=== PATIENT | female | born 1940 | race Caucasian/White ===

== ENCOUNTER 2022-03-27 12:52 | Outpatient (CLI) | payer MEDICARE, BC, SELFPAY | END 2022-03-27 12:53 | disposition home or self-care (01) | LOC: WOUND 12:57 | PROVIDERS: Visit Provider Surgery | DX: S89.82XA Other specified injuries of left lower leg, initial encounter (principal) | CPT/HCPCS: 11042; 99213 ==

== ENCOUNTER 2022-04-03 13:54 | Outpatient (CLI) | payer MEDICARE, BC, SELFPAY | END 2022-04-03 13:55 | disposition home or self-care (01) | LOC: WOUND 13:55 | PROVIDERS: Visit Provider Surgery | DX: S81.802A Unspecified open wound, left lower leg, initial encounter (principal) | CPT/HCPCS: 97597 ==

== ENCOUNTER 2022-04-17 09:00 | Outpatient (CLI) | payer MEDICARE, BC, SELFPAY | END 2022-04-17 09:01 | disposition home or self-care (01) | LOC: WOUND 08-27 11:17 | PROVIDERS: Visit Provider Surgery | DX: I83.022 Varicose veins of left lower extremity with ulcer of calf (principal); I87.2 Venous insufficiency (chronic) (peripheral); L97.222 Non-pressure chronic ulcer of left calf with fat layer exposed | CPT/HCPCS: 11042 ==

== ENCOUNTER 2022-04-24 13:53 | Outpatient (CLI) | payer MEDICARE, BC, SELFPAY | END 2022-04-24 13:54 | disposition home or self-care (01) | LOC: WOUND 13:54 | PROVIDERS: Visit Provider Nurse Practitioner Family | DX: S81.802A Unspecified open wound, left lower leg, initial encounter (principal); I87.2 Venous insufficiency (chronic) (peripheral) | CPT/HCPCS: 11042 ==

== ENCOUNTER 2022-05-01 13:53 | Outpatient (CLI) | payer MEDICARE, BC, SELFPAY | END 2022-05-01 13:54 | disposition home or self-care (01) | LOC: WOUND 13:53 | PROVIDERS: Visit Provider Surgery | DX: S81.802A Unspecified open wound, left lower leg, initial encounter (principal); I87.2 Venous insufficiency (chronic) (peripheral) | CPT/HCPCS: 11042 ==

== ENCOUNTER 2022-05-08 13:53 | Outpatient (CLI) | payer MEDICARE, BC, SELFPAY | END 2022-05-08 13:54 | disposition home or self-care (01) | PROVIDERS: Visit Provider Surgery | DX: S81.802A Unspecified open wound, left lower leg, initial encounter (principal); I87.2 Venous insufficiency (chronic) (peripheral) | CPT/HCPCS: 11042 ==

== ENCOUNTER 2022-05-15 13:52 | Outpatient (CLI) | payer MEDICARE, BC, SELFPAY | END 2022-05-15 13:53 | disposition home or self-care (01) | LOC: WOUND 13:53 | PROVIDERS: Visit Provider Surgery | DX: S81.802A Unspecified open wound, left lower leg, initial encounter (principal); I87.2 Venous insufficiency (chronic) (peripheral) | CPT/HCPCS: 99212 ==

== ENCOUNTER 2022-12-12 19:59 | Inpatient (IN) | payer MEDICARE, BC, SELFPAY ==
[2022-12-12] VITALS (20 sets, daily range): BP systolic 123–144; BP diastolic 69–81; PULSE 107–122; RESP 24; TEMP 36.5; O2SAT 88–91
--- NOTE | 2022-12-12 20:37 | ED_ITS ---
HPI - SOB/Dyspnea General Time Seen by Provider: 20:37 Date Seen: 12/12/22 Chief Complaint: Shortness of Breath/Dyspnea Stated Complaint: Nausea Low O2 Time Seen by Provider: 12/12/22 20:32 Source: patient and RN notes reviewed Mode of arrival: ambulatory Limitations: no limitations History of Present Illness HPI Narrative: Patient is an 82-year-old female coming in with her due to concerns of decreased oxygenation tonight. He put a pulse oximeter and she was 80% at home. Since Friday or Friday she has had increased coughing. She has maybe had some low-grade temperatures of 99 at home. She does not endorse being short of breath per se but states sometimes she just feels like she can not fully take a breath. When she walked in to triage she was 79% on room air and came up to high 80s after resting. She is up to I believe 5 L nasal cannula to keep her O2 sats up to 90% when I am in with her. She and her admit that they have had respiratory stuff going through the house for maybe about 3 weeks. Patient was recently in [place] where her daughter had a cold. She does admit that she is worsening really Friday or Friday. There is maybe some nausea. She denies any chest pain. correct patient a lot during the history. She denied smoking but he states she is a moderate smoker. She denies any history of cardiac or lung problems. They note that her hands and feet have been cold. MD elicited complaint: cough Related Data Home oxygen amount: none Allergies Allergy/AdvReac Type Severity Reaction Status Date / Time Penicillins Allergy Intermediate Verified 12/12/22 22:45 Review of Systems Status of ROS: Reports: 6 or more systems reviewed and unremarkable except as noted in History and below (question patient's ability to give reliable history at this point) PFSH PFS Social History Smoking Status: Current some day smoker What tobacco products do you use: cigarettes How often do you have a drink containing alcohol: 2-3 times a week How many standard drinks containing alcohol do you have on a typical day: 1 or 2 How often do you have six or more drinks on one occasion: Never AUDIT-C Alcohol total score: 3 Non-prescribed substance use: denies use Exam Const: Vital Signs, click to edit/add: Vital Signs - 24 hr 12/12/22 20:07 12/12/22 20:38 12/12/22 20:50 Temperature 97.7 F Pulse Rate 120 H Pulse Rate [Left P ulse Oximeter] 122 H Respiratory Rate 24 24 Blood Pressure 123/81 Blood Pressure [Ri ght Upper Arm] 134/78 Pulse Oximetry 89 90 90 Oxygen Delivery Me thod Room Air Nasal Cannula Nasal Cannula Oxygen Flow Rate 5 5 12/12/22 21:00 12/12/22 21:00 12/12/22 21:01 Temperature Pulse Rate 117 H 118 H Pulse Rate [Left P ulse Oximeter] Respiratory Rate Blood Pressure 123/81 Blood Pressure [Ri ght Upper Arm] Pulse Oximetry 90 89 91 Oxygen Delivery Me thod Oxygen Flow Rate 12/12/22 21:15 12/12/22 21:30 12/12/22 21:31 Temperature Pulse Rate 115 H 112 H 113 H Pulse Rate [Left P ulse Oximeter] Respiratory Rate Blood Pressure 132/80 Blood Pressure [Ri ght Upper Arm] Pulse Oximetry 90 89 89 Oxygen Delivery Me thod Oxygen Flow Rate 12/12/22 21:32 12/12/22 21:45 12/12/22 22:00 Temperature Pulse Rate 107 H 108 H 112 H Pulse Rate [Left P ulse Oximeter] Respiratory Rate Blood Pressure Blood Pressure [Ri ght Upper Arm] Pulse Oximetry 89 91 89 Oxygen Delivery Me thod Oxygen Flow Rate 12/12/22 22:01 12/12/22 22:45 12/12/22 23:00 Temperature Pulse Rate 112 H 110 H 112 H Pulse Rate [Left P ulse Oximeter] Respiratory Rate Blood Pressure 137/69 Blood Pressure [Ri ght Upper Arm] Pulse Oximetry 90 88 90 Oxygen Delivery Me thod Oxygen Flow Rate 5 12/12/22 23:01 12/12/22 23:02 12/12/22 23:15 Temperature Pulse Rate 113 H 112 H 111 H Pulse Rate [Left P ulse Oximeter] Respiratory Rate Blood Pressure 144/78 H Blood Pressure [Ri ght Upper Arm] Pulse Oximetry 90 90 90 Oxygen Delivery Me thod Oxygen Flow Rate 12/12/22 23:30 12/12/22 23:31 12/12/22 23:45 Temperature Pulse Rate 108 H 108 H 108 H Pulse Rate [Left P ulse Oximeter] Respiratory Rate Blood Pressure 130/74 Blood Pressure [Ri ght Upper Arm] Pulse Oximetry 91 91 91 Oxygen Delivery Me thod Nasal Cannula Oxygen Flow Rate 5 Documenting provider has reviewed patient's vital signs: yes Common normals: no apparent distress, average body habitus, oriented x3 and alert General appearance: cooperative, comfortable, well kempt and well developed HENMT: Common normals: normocephalic, head/scalp atraumatic, hearing grossly normal bilaterally, external ears normal, external nose normal, nasal mucous membranes and turbinates normal, moist oral mucous membranes, oropharynx normal and dentition normal Head and scalp: normocephalic and atraumatic Nose: external nose normal and nasal mucous membranes and turbinates normal E xternal ear: external ears normal Eye: Common normals: PERRL, EOMs intact bilaterally, conjunctivae normal and no scleral icterus Conjunctiva: conjunctiva(e) normal Pupil: PERRL Neck & C-Spine: Common normals: full ROM, no lymphadenopathy, supple and no meningeal signs Chest: Common normals: inspection of chest normal and palpation of chest normal Resp: Common normals: normal respiratory effort, no retractions, no use of accessory muscles and clear to auscultation bilaterally (But with somewhat distant breath sounds) Auscultation: clear to auscultation bilaterally (But with somewhat distant breath sounds) Cardio: Common normals: regular rhythm, S1 normal heart sound, S2 normal heart sound, no gallops, no clicks and no murmurs Rate: tachycardic Rhythm: regular rhythm Heart sounds: S1 normal and S2 normal GI: Common normals: Normal to inspection, nondistended, normoactive bowel sounds present, soft to palpation, non-tender, no hepatosplenomegaly and no masses Palpation: soft and no hepatosplenomegaly Extremity: Common normals: normal to inspection, no calf tenderness and no pedal edema Neuro: Common normals: oriented x3 Sensorium/orientation: alert Meningeal signs: no meningeal signs Psych: Appearance: well kempt Course Course Hospital Course: Patient is hypoxic but not significantly short of breath. This seems very reminiscent of COVID. She is on 5 L nasal cannula in just into the 90s. We will do the triple viral swab, portable chest x-ray. I will get a full complement of labs on her including D-dimer. My initial presumption is this is possibly COVID but could be other respiratory infections as well. We certainly will be considering thromboembolic disease in this picture, will look at cardiac parameters 2. Reevaluation(s) Reevaluation #1: Reviewed with patient that there is significant pneumonia seen on her chest x- ray. We are going to send her for chest CT PE protocol to further evaluate this. Her white count is quite suppressed but her COVID is coming back negative at this time. Time: 22:02 Consultations Consultation #1: Did briefly review this case with Dr. Puga. He will be finishing up his shift an asked that I speak with the overnight call coverage group. We did discuss her pneumonia. Legionella was something we did discuss, he did order the Legionella antibody. Reviewed with him that I had went on and reviewed in up-to-date for hospitalize community-acquired pneumonia. I am going to initiate coverage with Rocephin and azithromycin. Her white count is suppressed in her presentation certainly reminds me of a COVID like illness. She is maintaining on 5 L oxygen. She is a definite smoker and did have diminished breath sounds but no wheezing. We did discuss use of a dose of oral prednisone and I did order [address] is not showing any evidence of pulmonary embolus. 1155pm accepted by [facility]. Time: 23:28 Vital Signs Vital signs: Initial Vital Signs Temperature 97.7 F 12/12/22 20:07 Temperature Source Temporal Artery Scan 12/12/22 20:07 Pulse Rate 122 H 12/12/22 20:07 Pulse Rhythm Regular 12/12/22 20:07 Respiratory Rate 24 12/12/22 20:07 Blood Pressure 134/78 12/12/22 20:07 Blood Pressure Mean 96 12/12/22 20:07 Pulse Oximetry 89 12/12/22 20:07 Oxygen Delivery Method Room Air 12/12/22 20:07 Vital Signs Temperature 97.7 F 12/12/22 20:07 Pulse Rate 122 H 12/12/22 20:07 Respiratory Rate 24 12/12/22 20:07 Blood Pressure 134/78 12/12/22 20:07 Pulse Oximetry 89 12/12/22 20:07 Oxygen Delivery Method Room Air 12/12/22 20:07 Temperature 97.7 F 12/12/22 20:07 Pulse Rate 108 H 12/12/22 23:45 Respiratory Rate 24 12/12/22 20:50 Blood Pressure 130/74 12/12/22 23:31 Pulse Oximetry 91 12/12/22 23:45 Oxygen Delivery Method Nasal Cannula 12/12/22 23:31 Oxygen Flow Rate 5 12/12/22 23:31 MDM - SOB/Dyspnea Lab Data Attestation: I reviewed the patient's lab results. Labs: Lab Results 12/12/22 Range/Units 20:47 WBC 2.87 L (4.50-11.00) K/uL RBC 4.41 (4.00-5.20) m/uL Hgb 13.5 (12.0-16.0) gm/dL Hct 38.8 (33.0-51.0) % MCV 88 (80-100) fL MCH 31 (26-34) pg MCHC 35 (32-36) gm/dL RDW Coeff of Yuli 12.4 (11.5-15.5) % Plt Count 162 (140-440) K/uL Neut % (Auto) 92.0 H (42.0-72.0) % Lymph % (Auto) 4.2 L (20-44) % Stafford % (Auto) 3.5 (0.0-11.0) % Eos % (Auto) 0.0 (0.0-7.0) % Baso % (Auto) 0.3 (0.0-3.0) % Neut # (Auto) 2.60 (1.7-7.0) K/uL Lymph # (Auto) 0.10 L (0.90-2.90) K/uL Stafford # (Auto) 0.10 (0.00-0.90) K/UL Eos # (Auto) 0.00 (0.00-0.50) K/uL Baso # (Auto) 0.00 (0.00-0.30) K/uL Diff Slide Review Acceptable Review (Acceptable) D-Dimer Quant (PE/DVT) 2.64 H (0.00-0.50) ug/ml VBG pH 7.421 (7.32-7.43) VBG pCO2 34 L (40-50) mmHG VBG pO2 49.1 H (25-47) mmHG VBG HCO3 22 (21-28) mmol/L Sodium 120 L* (135-149) mmol/L Potassium 4.2 (3.6-5.1) mmol/L Chloride 89 L (96-114) mmol/L Carbon Dioxide 20 (20-32) mmol/L BUN 21 (7-30) mg/dL Creatinine 0.7 (0.5-1.5) mg/dL Estimated GFR 86 ml/min Glucose 95 (60-115) mg/dL Lactate 1.7 (0.5-1.9) mmol/L Calcium 9.2 (8.4-10.6) mg/dL Total Bilirubin 1.0 (0.1-1.5) mg/dL AST 49 H (12-35) U/L ALT 33 (4-35) U/L Alkaline Phosphatase 118 (40-150) U/L Troponin I 0.01 (0.01-0.04) ng/mL C-Reactive Protein 39.4 H (0.5-1.0) mg/dL NT-Pro-B Natriuret Pep 1690 pg/mL Total Protein 6.7 (6.0-8.3) g/dL Albumin 3.5 (3.3-5.0) g/dL SARS-CoV-2 (PCR) Negative SARS-CoV-2 (Negative) Influenza Type A (PCR) Negative PCR FLU A (Negative) Influenza Type B (PCR) Negative PCR FLU B (Negative) RSV (PCR) Negative PCR RSV (Negative) Imaging Data Chest x-ray: Attestation: I have reviewed the pertinent imaging results. My impression: Significant consolidated pneumonia on the left certainly seen, await Radiology over-read. Radiologist's impression: Patient: RIMA DANIELLE Facility:?[facility] Patient ID:?[id number] Site Patient ID:?[id number] Site :?[id number] Study:?XRay Chest Portable v-12/12/2022 8:56:34 PM Ordering Physician:Jovanan Girard Final Report: INDICATION: Cough, hypoxia TECHNIQUE: Chest radiograph 1 view COMPARISON: None FINDINGS: Mediastinum: The mediastinum is normal in appearance. The heart silhouette is normal in size and morphology. Lung: Consolidation of most of the left hemithorax is present with mild ground- glass infiltrate seen in the right lower lung zone. No sign of pleural effusion seen. No pneumothorax is identified. Bone and Soft tissue: Unremarkable for age. IMPRESSION: 1. Consolidation of most of the left hemithorax is present with mild ground- glass infiltrate seen in the right lower lung zone. Findings may be due to pneumonia. Dictated by Valeriy Hinton MD @ 12/12/2022 9:19:17 PM Dictated by: Valeriy Hinton MD @ 12/12/2022 21:19:21 (Electronic Signature) CT scan - chest: Attestation: I have reviewed the pertinent imaging results. My impression: Can clearly see the bilateral pneumonia on chest CT, wait radiology over read. Radiologist's impression: Patient: RIMA DANIELLE Facility:?[facility] Patient ID:?[id number] Site Patient ID:?[id number]. Site :?[id number] Study:?CT Chest Angio w/ 95cc [id number]/4/2023 10:47:02 PM Ordering Physician:Jovanna Girard Final Report: INDICATION: Hypoxia, bilateral pneumonia. TECHNIQUE: CT chest PE was acquired with 95 cc Isovue 370 IV contrast. Permanently recorded images are archived. COMPARISON: Chest radiograph from the same day. FINDINGS: Heart and vasculature: Contrast opacification of the pulmonary arterial tree is adequate. No sign of pulmonary embolism. Heart size is normal. Thoracic aorta and pulmonary artery are normal in caliber.Coronary artery and thoracic aorta atherosclerotic calcification. Aortic valve calcifications. No pericardial effusion. Lungs and pleura: Large area of consolidation occupying the nearly the entire left upper lobe. Additional band of consolidation within the lateral aspect of the right middle lobe. No pleural effusion or pneumothorax. No pleural effusions, pleural thickening, or pneumothorax. Lymph nodes/mediastinum: Prominent, but not pathologically enlarged mediastinal lymph nodes, likely reactive. No axillary lymphadenopathy Chest wall: No masses. Upper abdomen: Large exophytic 7.8 cm cyst with simple fluid and peripheral calcification arising from the left kidney. Simple 6 cm exophytic cyst arising from the right kidney. Bones: Unremarkable for age. IMPRESSION: No pulmonary embolism. Areas of consolidation within the left upper lobe and right middle lobe with near complete involvement of the left upper lobe, compatible with multilobar pneumonia. No effusion. Incidentally noted large bilateral renal cysts, measuring 7.8 cm on the left and 6 cm on the right. Please note that all CT scans at this facility use dose modulation, iterative reconstruction, and/or weight-based dosing when appropriate to reduce radiation dose to as low as reasonably achievable. Dictated by Maurilio Lovell MD @ 12/12/2022 11:06:29 PM (Electronic Signature) ECG Data Attestation: I personally reviewed and interpreted this ECG as follows: (Sinus tachycardia with PVC, 118 beats per minute. Flipped T-waves V1 through V3 and in lead 3. No definitive ST segment changes.) ECG interpretation date: 12/12/22 ECG interpretation time: 21:23 Prior ECG tracings: not available for review Ischemic changes: t wave inversions Critical Care Time Critical Care Time Critical Care Time: No Discharge Plan Discharge Clinical Impression: Hypoxia, Pneumonia of both lungs, Acute hyponatremia Patient Disposition: Admitted As Inpatient Condition: Unchanged
--- NOTE | 2022-12-12 20:38 | CRLHL7_ITS ---
For Patients: As a result of the Cures Act, medical imaging exams and procedure reports are released immediately into your electronic medical record. You may view this report before your referring provider. If you have questions, please contact your health care provider. INDICATION: Cough, hypoxia TECHNIQUE: Chest radiograph 1 view COMPARISON: None FINDINGS: Mediastinum: The mediastinum is normal in appearance. The heart silhouette is normal in size and morphology. Lung: Consolidation of most of the left hemithorax is present with mild ground-glass infiltrate seen in the right lower lung zone. No sign of pleural effusion seen. No pneumothorax is identified. Bone and Soft tissue: Unremarkable for age. IMPRESSION: 1. Consolidation of most of the left hemithorax is present with mild ground-glass infiltrate seen in the right lower lung zone. Findings may be due to pneumonia. Dictated by Valeriy Hinton MD @ 12/12/2022 9:19:17 PM Dictated by: Valeriy Hinton MD @ 12/12/2022 21:19:21 (Electronically Signed)
[2022-12-12 20:52] LABS: HCO3 VBG 22 mmol/L (21-28); PCO2 VBG 34 mmHG (40-50); PO2 VBG 49.1 mmHG (25-47); pH VBG 7.421 (7.32-7.43)
[2022-12-12 20:53] LABS: Basophils Percent Auto 0.3 % (0.0-3.0); Hematocrit 38.8 % (33.0-51.0); Hemoglobin* 13.5 gm/dL (12.0-16.0); Lymphocytes Percent Auto 4.2 % (20-44); Mean Corpuscular HGB Conc 35 gm/dL (32-36); Mean Corpuscular Hemoglobin 31 pg (26-34); Mean Corpuscular Volume 88 fL (80-100); Monocytes Percent Auto 3.5 % (0.0-11.0); Platelet Count* 162 K/uL (140-440); RDW Coefficient of Variation % 12.4 % (11.5-15.5); Red Blood Count 4.41 m/uL (4.00-5.20); White Blood Count* 2.87 K/uL (4.50-11.00)
[2022-12-12 20:54] LABS: Lactate* 1.7 mmol/L (0.5-1.9)
[2022-12-12 20:58] LABS: Slide Review Reflex Yes
[2022-12-12 21:15] LABS: Albumin* 3.5 g/dL (3.3-5.0); Chloride* 89 mmol/L (96-114)
[2022-12-12 21:16] LABS: Potassium* 4.2 mmol/L (3.6-5.1)
[2022-12-12 21:18] LABS: Alanine Aminotransferase* 33 U/L (4-35); Alkaline Phosphatase* 118 U/L (40-150); Aspartate Amino Transferase* 49 U/L (12-35); Carbon Dioxide* 20 mmol/L (20-32); Creatinine* 0.7 mg/dL (0.5-1.5); Estimated Glomerular Filt Rate 86 ml/min; Total Protein* 6.7 g/dL (6.0-8.3)
[2022-12-12 21:19] LABS: Blood Urea Nitrogen* 21 mg/dL (7-30); Calcium* 9.2 mg/dL (8.4-10.6); Glucose* 95 mg/dL (60-115); Slide Review Acceptable Review (Acceptable)
[2022-12-12 21:21] LABS: Sodium* 120 mmol/L (135-149)
[2022-12-12 21:30] LABS: PCR FLU A Negative PCR FLU A (Negative); PCR FLU B Negative PCR FLU B (Negative); PCR RSV Negative PCR RSV (Negative); Troponin I* 0.01 ng/mL (0.01-0.04)
[2022-12-12 21:32] LABS: D Dimer Quantitative* 2.64 ug/ml (0.00-0.50)
[2022-12-12 21:41] LABS: NT Pro B Type NatriureticPept* 1690 pg/mL
[2022-12-12 21:49] LABS: SARS PCR* Negative SARS-CoV-2 (Negative)
[2022-12-12] MEDS: 0.9 % SODIUM CHLORIDE 500 ML 500 ML IV (21:51)
--- NOTE | 2022-12-12 21:54 | CRLHL7_ITS ---
For Patients: As a result of the Century Cures Act, medical imaging exams and procedure reports are released immediately into your electronic medical record. You may view this report before your referring provider. If you have questions, please contact your health care provider. INDICATION: Hypoxia, bilateral pneumonia. TECHNIQUE: CT chest PE was acquired with 95 cc Isovue 370 IV contrast. Permanently recorded images are archived. COMPARISON: Chest radiograph from the same day. FINDINGS: Heart and vasculature: Contrast opacification of the pulmonary arterial tree is adequate. No sign of pulmonary embolism. Heart size is normal. Thoracic aorta and pulmonary artery are normal in caliber.Coronary artery and thoracic aorta atherosclerotic calcification. Aortic valve calcifications. No pericardial effusion. Lungs and pleura: Large area of consolidation occupying the nearly the entire left upper lobe. Additional band of consolidation within the lateral aspect of the right middle lobe. No pleural effusion or pneumothorax. No pleural effusions, pleural thickening, or pneumothorax. Lymph nodes/mediastinum: Prominent, but not pathologically enlarged mediastinal lymph nodes, likely reactive. No axillary lymphadenopathy Chest wall: No masses. Upper abdomen: Large exophytic 7.8 cm cyst with simple fluid and peripheral calcification arising from the left kidney. Simple 6 cm exophytic cyst arising from the right kidney. Bones: Unremarkable for age. IMPRESSION: No pulmonary embolism. Areas of consolidation within the left upper lobe and right middle lobe with near complete involvement of the left upper lobe, compatible with multilobar pneumonia. No effusion. Incidentally noted large bilateral renal cysts, measuring 7.8 cm on the left and 6 cm on the right. Please note that all CT scans at this facility use dose modulation, iterative reconstruction, and/or weight-based dosing when appropriate to reduce radiation dose to as low as reasonably achievable. Dictated by Maurilio Lovell MD @ 12/12/2022 11:06:29 PM (Electronically Signed)
[2022-12-12] MEDS: cefTRIAXone 2 GM in 0.9 % SODIUM CHLORIDE Mini-bag 100 ML IVPB (23:34)
[2022-12-12] MEDS: predniSONE 10 MG TABLET 40 MG PO (23:35)
[2022-12-12] MEDS: AZITHROMYCIN 250 MG TABLET 500 MG PO (23:35)
--- NOTE | 2022-12-12 23:55 | ED.NURSE ---
Report to casing blower. Patient to room 256.
[2022-12-12 23:59] LABS: C Reactive Protein* 39.4 mg/dL (0.5-1.0)
[2022-12-13] VITALS (9 sets, daily range): BP systolic 122–162; BP diastolic 59–88; PULSE 80–113; RESP 16–22; TEMP 36.7–37.4; O2SAT 92–95
--- NOTE | 2022-12-13 02:06 | P.IMPN_ITS ---
Progress Note: A&P Assessment and plan (1) Acute respiratory failure with hypoxia: Status: Acute (2) Pneumonia of both lungs: Status: Acute (3) Acute hyponatremia: Status: Acute Plan Conrado Ascencio Hospitalist collaboration: I have discussed in detail with ED Provider Dr. Briggs. 82-year-old female who was brought into the ED by her due to ongoing cough and hypoxia with O2 sat 88% at home. She is not on oxygen or CPAP at home. When she arrived to ED triage she was 77-79% on room air. In general she and her and her daughter have been sick with upper respiratory symptoms for 2 to 3 weeks. When she was feeling worse with ongoing/increasing cough which is mostly been nonproductive cough. Coughing makes her short of breath. But she also just feels like it is hard to catch her breath at times. No chills. Maybe a mild fever. Denied any chest pain. No nausea, vomiting, abdominal pain, dysuria, hematuria, melena, hematochezia, diarrhea. Maybe at 1 point she had a little nausea but none now. She had recently visited her daughter in [facility] and her daughter had been sick as well. Patient states she took a COVID test last week that was negative. She denies lower extremity or ankle edema. She feels like she was worsening since Friday and Friday and today much worse thus was brought into the ED by her . She is a smoker she states she smokes a few days a week and approximately 5 cigarettes/week. Denied any heart or lung history and the only other symptom she had was cold hands and feet. Laboratory/imaging in the ED: WBC 2.87, hemoglobin 13.5, hematocrit 38.8, MCV 88, platelets 162. D-dimer was elevated at 2.64. VBG pH 7.421, PCO2 34, PO2 49.1, bicarb 22. Sodium 120 and do not have prior sodium to compare to, potassium 4.2, chloride 89, CO2 20, BUN 21, creatinine 0.7, glucose 95, calcium 9.2, lactic acid 1.7, total bilirubin 1, AST 49, ALT 33, alk phosphatase 118, total protein 6.7, albumin 3.5. Troponin I less than 0.01. N pro BNP 1690 and do not have a prior level to compare to. CRP 39.4. COVID-19, influenza A, influenza B, RSV negative. Legionella pending. Chest x-ray reviewed consolidation in the left lung and mild groundglass infiltrate in the right lung and may also be due to pneumonia. CTA chest: No PE, consolidation within the left upper lobe and right middle lobe compatible with multilobar pneumonia, incidental large bilateral renal cyst 7.8 cm on the left and 6 cm on the right. EKG sinus tachycardia, heart rate 118 and flipped T waves V1 through V3 but no ST elevation and do not have a prior EKG to compare to, no chest pain. Patient was given in the ED Rocephin, azithromycin, prednisone. She is requiring 5 to 6 L nasal cannula of O2. PMH/PSH: Tobacco dependence, occasional alcohol use 1-2 drinks approximately 2-3 times a week. History of left lower leg wound and varicose veins. Allergies: Penicillins, currently tolerating cephalosporins. Telemedicine exam: Vitals reviewed No apparent distress, she is awake and alert and oriented x3 She is able to talk to me in complete sentences, speech is clear Follows commands, no lateralizing weakness Pupils equal, no scleral icterus Lips and mouth are mildly dry, tongue midline on protrusion Neck no swelling, trachea midline Heart tachycardic, 2/6 systolic murmur Lungs left upper crackles and at times left lower lobe crackles, right middle lung crackles, no wheezes, but does have generalized diminished breath sounds overall, no respiratory distress Abdomen bowel sounds are positive, soft, nondistended, nontender for nursing palpation Lower extremities no pitting edema bilateral and nursing confirmed with palpation Skin dry, mildly dry Assessment and plan: Acute hypoxic respiratory failure Multilobar pneumonia Hyponatremia, acute: Plan: Patient is requiring 5 to 6 L nasal cannula O2 and satting 92%, she does not have any respiratory distress though, she is able to talk to me in complete sentences. She is tachycardic with sinus tachycardia but no evidence of hypotension. Lactic acid was not elevated at 1.7. She had leukopenia of 2.87 which could be infection related as well. She is afebrile. RSV, COVID, influenza A and B are negative. Legionella is pending. Added strep urine antigen. Continue Rocephin and azithromycin for community-acquired pneumonia that were initiated in the ED. No current wheezing on exam but does have diminished breath sounds and steroids were initiated in the ED and will continue steroid burst which would also use in regards to community-acquired pneumonia, but also she is a smoker at baseline approximately 5 cigarettes/week risk for exacerbation from smoking. She denies need for nicotine patch. Wean O2 as able. Duo nebs as needed. Tylenol. As needed Tessueon Bethanie. Would also recommend repeat imaging in follow-up to confirm pneumonia clearing. Will keep on telemetry for the tachycardia likely related to underlying pneumonia. She does have a murmur on heart exam could consider an echo at some point. Her and N pro bnp was 1690 but no signs of volume overload on on exam. She was also hyponatremic but mental status awake and alert and oriented x3 and following commands. She had some nausea at 1 point, none currently and no vomiting. Sodium was 120 and do not have a prior sodium level to compare to, will repeat sodium since she was receiving IV fluids in the ED and make sure we are not over correcting and based on repeat level will determine need for further fluids or other treatment such as fluid restriction. Plan serum osmolality, urine sodium, urine osmolality. I do not have any current home medications and will need to verify this as well in the a.m. Keep her on telemetry as mentioned for the tachycardia and could consider an echo with a heart murmur heard and troponin was not elevated and she has not had any chest pain, EKG had some inverted T waves in the anterior leads but again no chest pain and no elevated troponin, monitor. Will also need to confirm no home meds with further review in am. Diet: Regular DVT prophylaxis: Ambulatory, SCDs, consider pharmacologic prophylaxis dose of Lovenox in the a.m. CODE STATUS: Full code Please call E hospitalist with questions Subjective Date Seen: 12/13/22 Exam Const: Vital Signs, click to edit/add: Vital Signs - 24 hr 12/12/22 20:07 12/12/22 20:38 12/12/22 20:50 Temperature 97.7 F Pulse Rate 120 H Pulse Rate [Left P ulse Oximeter] 122 H Respiratory Rate 24 24 Blood Pressure 123/81 Blood Pressure [Le ft Arm] Blood Pressure [Ri ght Upper Arm] 134/78 Pulse Oximetry 89 90 90 Oxygen Delivery Me thod Room Air Nasal Cannula Nasal Cannula Oxygen Flow Rate 5 5 Fraction of Inspir ed Oxygen 12/12/22 21:00 12/12/22 21:00 12/12/22 21:01 Temperature Pulse Rate 117 H 118 H Pulse Rate [Left P ulse Oximeter] Respiratory Rate Blood Pressure 123/81 Blood Pressure [Le ft Arm] Blood Pressure [Ri ght Upper Arm] Pulse Oximetry 90 89 91 Oxygen Delivery Me thod Oxygen Flow Rate Fraction of Inspir ed Oxygen 12/12/22 21:15 12/12/22 21:30 12/12/22 21:31 Temperature Pulse Rate 115 H 112 H 113 H Pulse Rate [Left P ulse Oximeter] Respiratory Rate Blood Pressure 132/80 Blood Pressure [Le ft Arm] Blood Pressure [Ri ght Upper Arm] Pulse Oximetry 90 89 89 Oxygen Delivery Me thod Oxygen Flow Rate Fraction of Inspir ed Oxygen 12/12/22 21:32 12/12/22 21:45 12/12/22 22:00 Temperature Pulse Rate 107 H 108 H 112 H Pulse Rate [Left P ulse Oximeter] Respiratory Rate Blood Pressure Blood Pressure [Le ft Arm] Blood Pressure [Ri ght Upper Arm] Pulse Oximetry 89 91 89 Oxygen Delivery Me thod Oxygen Flow Rate Fraction of Inspir ed Oxygen 12/12/22 22:01 12/12/22 22:45 12/12/22 23:00 Temperature Pulse Rate 112 H 110 H 112 H Pulse Rate [Left P ulse Oximeter] Respiratory Rate Blood Pressure 137/69 Blood Pressure [Le ft Arm] Blood Pressure [Ri ght Upper Arm] Pulse Oximetry 90 88 90 Oxygen Delivery Me thod Oxygen Flow Rate 5 Fraction of Inspir ed Oxygen 12/12/22 23:01 12/12/22 23:02 12/12/22 23:15 Temperature Pulse Rate 113 H 112 H 111 H Pulse Rate [Left P ulse Oximeter] Respiratory Rate Blood Pressure 144/78 H Blood Pressure [Le ft Arm] Blood Pressure [Ri ght Upper Arm] Pulse Oximetry 90 90 90 Oxygen Delivery Me thod Oxygen Flow Rate Fraction of Inspir ed Oxygen 12/12/22 23:30 12/12/22 23:31 12/12/22 23:45 Temperature Pulse Rate 108 H 108 H 108 H Pulse Rate [Left P ulse Oximeter] Respiratory Rate Blood Pressure 130/74 Blood Pressure [Le ft Arm] Blood Pressure [Ri ght Upper Arm] Pulse Oximetry 91 91 91 Oxygen Delivery Me thod Nasal Cannula Oxygen Flow Rate 5 Fraction of Inspir ed Oxygen 12/13/22 00:30 12/13/22 00:30 12/13/22 01:00 Temperature 99.3 F 99.3 F Pulse Rate Pulse Rate [Left P ulse Oximeter] 113 H 113 H Respiratory Rate 20 22 Blood Pressure Blood Pressure [Le ft Arm] 141/80 H 141/80 H Blood Pressure [Ri ght Upper Arm] Pulse Oximetry 92 92 93 Oxygen Delivery Me thod Nasal Cannula Nasal Cannula Nasal Cannula Oxygen Flow Rate 6 5 Fraction of Inspir ed Oxygen 5 Labs Labs: Laboratory Results - last 24 hr 12/12/22 20:47 WBC 2.87 L RBC 4.41 Hgb 13.5 Hct 38.8 MCV 88 MCH 31 MCHC 35 RDW Coeff of Yuli 12.4 Plt Count 162 Neut % (Auto) 92.0 H Lymph % (Auto) 4.2 L [place] % (Auto) 3.5 Eos % (Auto) 0.0 Baso % (Auto) 0.3 Neut # (Auto) 2.60 Lymph # (Auto) 0.10 L [place] # (Auto) 0.10 Eos # (Auto) 0.00 Baso # (Auto) 0.00 Diff Slide Review Acceptable Review D-Dimer Quant (PE/DVT) 2.64 H VBG pH 7.421 VBG pCO2 34 L VBG pO2 49.1 H VBG HCO3 22 Sodium 120 L* Potassium 4.2 Chloride 89 L Carbon Dioxide 20 BUN 21 Creatinine 0.7 Estimated GFR 86 Glucose 95 Lactate 1.7 Calcium 9.2 Total Bilirubin 1.0 AST 49 H ALT 33 Alkaline Phosphatase 118 Troponin I 0.01 C-Reactive Protein 39.4 H NT-Pro-B Natriuret Pep 1690 Total Protein 6.7 Albumin 3.5 SARS-CoV-2 (PCR) Negative SARS-CoV-2 Influenza Type A (PCR) Negative PCR FLU A Influenza Type B (PCR) Negative PCR FLU B RSV (PCR) Negative PCR RSV
[2022-12-13 02:44] LABS: Sodium* 120 mmol/L (135-149)
--- NOTE | 2022-12-13 03:09 | PC.NURSE ---
nursing called [place] and reported sodium level of 120 to saul. banner states provider will be notified and will return call.
[2022-12-13] MEDS: 0.9 % SODIUM CHLORIDE 1000 ml 1,000 ML 75 ML IV (03:27)
[2022-12-13 07:24] LABS: Basophils Absolute Auto 0.01 K/uL (0.00-0.30); Basophils Percent Auto 0.2 % (0.0-3.0); Eosinophils Absolute Auto 0.03 K/uL (0.00-0.50); Eosinophils Percent Auto 0.6 % (0.0-7.0); Hematocrit 35.5 % (33.0-51.0); Hemoglobin* 12.5 gm/dL (12.0-16.0); Immature Granulocytes Abs Auto 0.02 K/uL (0.00-0.30); Immature Granulocytes Pct Auto 0.4 %; Lymphocytes Percent Auto 2.6 % (20-44); Mean Corpuscular HGB Conc 35 gm/dL (32-36); Mean Corpuscular Hemoglobin 31 pg (26-34); Mean Corpuscular Volume 88 fL (80-100); Monocytes Percent Auto 3.6 % (0.0-11.0); Neutrophils Percent Auto 92.6 % (42.0-72.0); Platelet Count* 167 K/uL (140-440); RDW Coefficient of Variation % 12.7 % (11.5-15.5); Red Blood Count 4.05 m/uL (4.00-5.20); White Blood Count* 5.33 K/uL (4.50-11.00)
[2022-12-13 07:48] LABS: Chloride* 91 mmol/L (96-114); Potassium* 4.1 mmol/L (3.6-5.1)
[2022-12-13 07:50] LABS: Creatinine* 0.7 mg/dL (0.5-1.5); Estimated Glomerular Filt Rate 86 ml/min
[2022-12-13 07:51] LABS: Alanine Aminotransferase* 34 U/L (4-35); Alkaline Phosphatase* 99 U/L (40-150); Aspartate Amino Transferase* 51 U/L (12-35); Bilirubin Total* 0.5 mg/dL (0.1-1.5); Blood Urea Nitrogen* 16 mg/dL (7-30); Carbon Dioxide* 20 mmol/L (20-32); Glucose* 80 mg/dL (60-115); Total Protein* 5.9 g/dL (6.0-8.3)
[2022-12-13 07:52] LABS: Calcium* 8.7 mg/dL (8.4-10.6)
--- NOTE | 2022-12-13 08:04 | PM.IMHP1 ---
Hospitalist- H&P: HPI History of Present Illness Date Seen: 12/13/22 Chief complaint: Nausea Low O2 Narrative: Melinda Jackson is a 82 year old female who presented to the emergency room yesterday for an approximate 4-5 day history of nausea and intermittent cough. She has not been eating well 2/2 illness, but is pushing fluids. She has had exposure to URI symptoms, and yesterday her checked her oxygen saturation at home and found to be in the low 80% range. ER course and findings: - sodium of 120 (baseline 135 as an outpatient) - CRP 30 9:00 a.m., elevated D-dimer, white blood count 2.8 with PMN predominance - CT scan revealed a multifocal pneumonia affecting the left upper lobe and right middle lobe - Rocephin and azithromycin initiated in the emergency room She was admitted overnight by the E-hospitalist service. This morning, patient is feeling better. She is still requiring supplemental oxygen. Medical history updated below, PCP is Dr. Elizondo locally. Review of Systems Narrative: - patient denies any weight changes or fevers - she has not had any chest pain or dyspnea - she is unsure if she has been confused lately, but notes a very significant change in baseline regarding her mentation. This was 1st noted 4 days ago [facility] Medical History (Updated 12/13/22 @ 14:54 by Aga Cota MD) Cataract ?H26.9 - Unspecified cataract (ICD-10) Skin cancer ?C44.90 - Unspecified malignant neoplasm of skin, unspecified (ICD-10) Skin cancer ?C44.90 - Unspecified malignant neoplasm of skin, unspecified (ICD-10) Hypertension ?I10 - Essential (primary) hypertension (ICD-10) Surgical History (Updated 12/13/22 @ 12:36 by Aga Cota MD) History of appendectomy ?Z90.49 - Acquired absence of other specified parts of digestive tract (ICD-10) H/O oophorectomy H/O hernia repair ?Z98.890 - Other specified postprocedural states (ICD-10) ?Z87.19 - Personal history of other diseases of the digestive system (ICD-10) Family History (Updated 12/13/22 @ 01:39 by Tunde Peace RN) Other High blood pressure Social History (Updated 12/13/22 @ 12:34 by Aga Cota MD) Narrative: Lives with René (would be medical decision maker if needed). 3 adult children. Approximately 20 pack year history of smoking. 1-2 glasses of wine per night most nights of the week. Denies h/o withdrawal. Highest level of school completed/degree received: some college, no degree Smoking Status: Current some day smoker What tobacco products do you use: cigarettes Do you use any of these nicotine containing products: None How often do you have a drink containing alcohol: 2-3 times a week Alcohol type: wine How many standard drinks containing alcohol do you have on a typical day: 1 or 2 How often do you have six or more drinks on one occasion: Never AUDIT-C Alcohol total score: 3 Non-prescribed substance use: denies use Caffeine: Yes (3 cups of coffee/day) service: No Meds Home Medications and Allergies Home Medications Medication Instructions Recorded Confirmed Type lisinopril 10 mg tablet 10 mg PO DAILY 12/13/22 12/13/22 History Allergies Allergy/AdvReac Type Severity Reaction Status Date / Time Penicillins Allergy Intermediate Verified 12/12/22 22:45 Exam Narrative: Exam Narrative: GEN: Alert and nontoxic in appearance, wearing supplemental oxygen HEENT: Normal external ears, EOMIs bilaterally, no scleral icterus CV: RRR, systolic murmur heard best at left sternal border R: No concerning wheezing, rhonchi throughout bilateral lung abraham L>R Ext: wwp, no concerning edema Skin: No concerning skin lesions or rashes on exposed skin Neuro: No focal deficits Psych: Not agitated, does appear to have some mild confusion Const: Vital Signs, click to edit/add: Vital Signs - 24 hr 12/12/22 20:07 12/12/22 20:38 12/12/22 20:50 Temperature 97.7 F Pulse Rate 120 H Pulse Rate [Left P ulse Oximeter] 122 H Respiratory Rate 24 24 Blood Pressure 123/81 Blood Pressure [Le ft Arm] Blood Pressure [Ri ght Upper Arm] 134/78 Pulse Oximetry 89 90 90 Oxygen Delivery Me thod Room Air Nasal Cannula Nasal Cannula Oxygen Flow Rate 5 5 Fraction of Inspir ed Oxygen 12/12/22 21:00 12/12/22 21:00 12/12/22 21:01 Temperature Pulse Rate 117 H 118 H Pulse Rate [Left P ulse Oximeter] Respiratory Rate Blood Pressure 123/81 Blood Pressure [Le ft Arm] Blood Pressure [Ri ght Upper Arm] Pulse Oximetry 90 89 91 Oxygen Delivery Me thod Oxygen Flow Rate Fraction of Inspir ed Oxygen 12/12/22 21:15 12/12/22 21:30 12/12/22 21:31 Temperature Pulse Rate 115 H 112 H 113 H Pulse Rate [Left P ulse Oximeter] Respiratory Rate Blood Pressure 132/80 Blood Pressure [Le ft Arm] Blood Pressure [Ri ght Upper Arm] Pulse Oximetry 90 89 89 Oxygen Delivery Me thod Oxygen Flow Rate Fraction of Inspir ed Oxygen 12/12/22 21:32 12/12/22 21:45 12/12/22 22:00 Temperature Pulse Rate 107 H 108 H 112 H Pulse Rate [Left P ulse Oximeter] Respiratory Rate Blood Pressure Blood Pressure [Le ft Arm] Blood Pressure [Ri ght Upper Arm] Pulse Oximetry 89 91 89 Oxygen Delivery Me thod Oxygen Flow Rate Fraction of Inspir ed Oxygen 12/12/22 22:01 12/12/22 22:45 12/12/22 23:00 Temperature Pulse Rate 112 H 110 H 112 H Pulse Rate [Left P ulse Oximeter] Respiratory Rate Blood Pressure 137/69 Blood Pressure [Le ft Arm] Blood Pressure [Ri ght Upper Arm] Pulse Oximetry 90 88 90 Oxygen Delivery Me thod Oxygen Flow Rate 5 Fraction of Inspir ed Oxygen 12/12/22 23:01 12/12/22 23:02 12/12/22 23:15 Temperature Pulse Rate 113 H 112 H 111 H Pulse Rate [Left P ulse Oximeter] Respiratory Rate Blood Pressure 144/78 H Blood Pressure [Le ft Arm] Blood Pressure [Ri ght Upper Arm] Pulse Oximetry 90 90 90 Oxygen Delivery Me thod Oxygen Flow Rate Fraction of Inspir ed Oxygen 12/12/22 23:30 12/12/22 23:31 12/12/22 23:45 Temperature Pulse Rate 108 H 108 H 108 H Pulse Rate [Left P ulse Oximeter] Respiratory Rate Blood Pressure 130/74 Blood Pressure [Le ft Arm] Blood Pressure [Ri ght Upper Arm] Pulse Oximetry 91 91 91 Oxygen Delivery Me thod Nasal Cannula Oxygen Flow Rate 5 Fraction of Inspir ed Oxygen 12/13/22 00:30 12/13/22 00:30 12/13/22 01:00 Temperature 99.3 F 99.3 F Pulse Rate Pulse Rate [Left P ulse Oximeter] 113 H 113 H Respiratory Rate 20 22 Blood Pressure Blood Pressure [Le ft Arm] 141/80 H 141/80 H Blood Pressure [Ri ght Upper Arm] Pulse Oximetry 92 92 93 Oxygen Delivery Me thod Nasal Cannula Nasal Cannula Nasal Cannula Oxygen Flow Rate 6 5 Fraction of Inspir ed Oxygen 5 Hospitalist - H&P: Result Labs Labs: Short CBC 12/12/22 Range/Units 20:47 WBC 2.87 L (4.50-11.00) K/uL Hgb 13.5 (12.0-16.0) gm/dL Hct 38.8 (33.0-51.0) % Plt Count 162 (140-440) K/uL BMP 12/12/22 12/13/22 20:47 02:15 Sodium 120 L* 120 L* Potassium 4.2 Chloride 89 L Carbon Dioxide 20 BUN 21 Creatinine 0.7 Glucose 95 Calcium 9.2 Cardiac Enzymes 12/12/22 Range/Units 20:47 Troponin I 0.01 (0.01-0.04) ng/mL Liver Function 12/12/22 Range/Units 20:47 Total Bilirubin 1.0 (0.1-1.5) mg/dL AST 49 H (12-35) U/L ALT 33 (4-35) U/L Alkaline Phosphatase 118 (40-150) U/L Albumin 3.5 (3.3-5.0) g/dL Assessment and Plan Assessment and plan (1) Acute respiratory failure with hypoxia: Problem comment: - 2/2 PNA Status: Acute (2) Pneumonia of both lungs: Problem comment: - Given severity of disease, will add vancomycin to regimen 12/13 - blood cultures obtained 12/13 (has received Azithromycin and Rocephin prior) - respiratory therapy following - continue supplemental oxygen as needed Status: Acute (3) Acute hyponatremia: Problem comment: - likely secondary to acute illness with decreased p.o. intake but persistent fluid intake - also concerning for possible underlying malignancy - No history of hyponatremia per chart review - close monitoring, low-dose hypertonic saline, fluid restriction Status: Acute (4) Confusion: Problem comment: - noted by on 12/09 - likely combination of acute illness and hyponatremia, also consider atypical alcohol withdrawal as patient states she drinks 1-2 glasses of wine most nights of the week (had not been drinking over the past few days secondary to illness) - continue to follow Status: Acute (5) Hypertension: Problem comment: - blood pressure on the lower side, holding home lisinopril dose Status: Acute Plan - continue antibiotics per above - close monitoring of electrolytes - taper supplemental oxygen as tolerated - Lovenox for prophylaxis - updated at bedside, questions answered
[2022-12-13 08:08] LABS: Sodium* 121 mmol/L (135-149)
[2022-12-13 08:23] LABS: Slide Review Reflex Yes
[2022-12-13 08:24] LABS: Slide Review Acceptable Review (Acceptable)
[2022-12-13] MEDS: predniSONE 20 MG TABLET 40 MG PO (08:57)
[2022-12-13] MEDS: cefTRIAXone 2 GM in 0.9 % SODIUM CHLORIDE Mini-bag 100 ML IVPB (10:36)
[2022-12-13] MEDS: AZITHROMYCIN 250 MG TABLET PO (10:36)
[2022-12-13] MEDS: SODIUM CHLORIDE 1 GM TABLET PO ×2 (12:43→17:39)
[2022-12-13 13:57] LABS: Sodium* 123 mmol/L (135-149)
--- NOTE | 2022-12-13 18:32 | PC.NURSE ---
End of shift note, care provided from [id number]: Pt alert to self only, confused on location, date, time and location. Pt very pleasant and appreciative but not easily re-directable as pt unable to retain information. Pt's vitals stable, continues on 2L via NC to maintain 90% O2, pt at times removes and needs replacing, con't pulse ox in place, afebrile. Pt had shower around 1530 with ILEANA. Pt continent this shift, but missed hat x2, hat placement adjusted. Pt continues on 3% sodium chloride at 30ml/hr into L wrist IV, (pt is not fidgeting with lines or cords at this time), Na to be rechecked 0 then sodium chloride IVF to be addressed by MD based on result. Pt con't on fluid restriction of 1800ml/hr. Pt rested for a short nap in evening prior to dinner, sleeping soundly but arousable. Pt eating dinner in chair, chair alarm on. Pt impulsive and confused, chair and bed alarm on at all times. Call light within reach.
[2022-12-13] MEDS: ENOXAPARIN 40 MG/0.4 ML INJ SUBCUT (20:00)
[2022-12-13 20:20] LABS: Sodium* 125 mmol/L (135-149)
[2022-12-14] VITALS (8 sets, daily range): BP systolic 120–156; BP diastolic 72–91; PULSE 72–109; RESP 18–24; TEMP 36.6–37.3; O2SAT 89–95
[2022-12-14 00:54] LABS: Sodium* 125 mmol/L (135-149)
--- NOTE | 2022-12-14 01:01 | W.PM.CROSSCO ---
Subjective Subjective Interval history: sodium improving to 125 decreasing 3% saline to 15 cc per hour +35cc NS per hour=50 ml/hr recheck sodium midnight updated RN with plan to update overnight MD on midnight sodium levels and further fluid adjustments as needed goal correction 4-6 meq over 24 hours
[2022-12-14 04:36] LABS: Sodium* 127 mmol/L (135-149)
--- NOTE | 2022-12-14 04:48 | PC.NURSE ---
Pt confused to situation. Pleasant and cooperative. Needs hep with pole while ambulating SBA. Reporting zero pain.
--- NOTE | 2022-12-14 05:27 | P.IMPN_ITS ---
Progress Note: A&P Assessment and plan (1) Acute hyponatremia: Problem details: Status: Acute Plan Conrado Ascencio hospitalist collaboration: Nursing noted repeat Na is 127 and earlier today was 123 and had been on 3% sali ne and NS and reviewed prior cross cover note. On admit Sodium was 120. Currently patient is on NS at 75ml/hour and 3% saline 15ml/hour per the MAR and confirming with bedside RN. Would decrease NS to 50ml/hour and hold the 3% saline at this time and check Na in 2hrs (0715) as goal Na change was 4-6 and patient is also on salt tabs. Subjective Date Seen: 12/14/22 Exam Const: Vital Signs, click to edit/add: Vital Signs - 24 hr 12/13/22 07:00 12/13/22 07:00 12/13/22 11:00 Temperature 98.2 F 98.2 F Pulse Rate [Left P ulse Oximeter] 111 H 111 H 102 H Respiratory Rate 20 20 20 Blood Pressure [Le ft Arm] 162/72 H 131/72 Pulse Oximetry 93 93 Oxygen Delivery Me thod Nasal Cannula Nasal Cannula Oxygen Flow Rate 3 2 12/13/22 15:00 12/13/22 15:45 12/13/22 19:19 Temperature 98.0 F 98.8 F Pulse Rate [Left P ulse Oximeter] 80 111 H Respiratory Rate 20 16 16 Blood Pressure [Le ft Arm] 122/59 L 144/88 H Pulse Oximetry 92 95 Oxygen Delivery Me thod Nasal Cannula Room Air Oxygen Flow Rate 2 12/13/22 22:28 12/13/22 22:32 12/14/22 02:40 Temperature 98.8 F 98 F Pulse Rate [Left P ulse Oximeter] 105 H 105 H 72 Respiratory Rate 16 16 18 Blood Pressure [Le ft Arm] 143/85 H 120/88 Pulse Oximetry 95 90 Oxygen Delivery Me thod Room Air Room Air Oxygen Flow Rate Labs Labs: Laboratory Results - last 24 hr 12/13/22 12/13/22 12/13/22 06:15 13:14 20:01 WBC 5.33 RBC 4.05 Hgb 12.5 Hct 35.5 MCV 88 MCH 31 MCHC 35 RDW Coeff of Yuli 12.7 Plt Count 167 Neut % (Auto) 92.6 H Lymph % (Auto) 2.6 L [place] % (Auto) 3.6 Eos % (Auto) 0.6 Baso % (Auto) 0.2 Neut # (Auto) 4.90 Lymph # (Auto) 0.10 L [place] # (Auto) 0.20 Eos # (Auto) 0.03 Baso # (Auto) 0.01 Diff Slide Review Acceptable Review Sodium 121 L* 123 L* 125 L Potassium 4.1 Chloride 91 L Carbon Dioxide 20 BUN 16 Creatinine 0.7 Estimated GFR 86 Glucose 80 Calcium 8.7 Total Bilirubin 0.5 AST 51 H ALT 34 Alkaline Phosphatase 99 Total Protein 5.9 L Albumin 3.0 L 12/14/22 12/14/22 00:35 04:13 WBC RBC Hgb Hct MCV MCH MCHC RDW Coeff of Yuli Plt Count Neut % (Auto) Lymph % (Auto) [place] % (Auto) Eos % (Auto) Baso % (Auto) Neut # (Auto) Lymph # (Auto) [place] # (Auto) Eos # (Auto) Baso # (Auto) Diff Slide Review Sodium 125 L 127 L Potassium Chloride Carbon Dioxide BUN Creatinine Estimated GFR Glucose Calcium Total Bilirubin AST ALT Alkaline Phosphatase Total Protein Albumin
[2022-12-14] MEDS: 0.9 % SODIUM CHLORIDE 1000 ml 1,000 ML 35 ML IV (05:32)
[2022-12-14] MEDS: 0.9 % SODIUM CHLORIDE 1000 ml 1,000 ML 50 ML IV (06:17)
--- NOTE | 2022-12-14 06:19 | PC.NURSE ---
Pt is much more alert and oriented this morning. She is up IND in room needing help with IV pole only. Answers all questions appropriately and timely.
[2022-12-14 06:46] LABS: Hematocrit 33.8 % (33.0-51.0); Immature Granulocytes Pct Auto 1.9 %; Mean Corpuscular HGB Conc 36 gm/dL (32-36); Mean Corpuscular Hemoglobin 31 pg (26-34); Mean Corpuscular Volume 86 fL (80-100); Monocytes Percent Auto 3.5 % (0.0-11.0); Neutrophils Percent Auto 91.6 % (42.0-72.0); Platelet Count* 162 K/uL (140-440); RDW Coefficient of Variation % 12.8 % (11.5-15.5); Red Blood Count 3.93 m/uL (4.00-5.20); White Blood Count* 11.54 K/uL (4.50-11.00)
[2022-12-14 07:06] LABS: Chloride* 101 mmol/L (96-114)
[2022-12-14 07:07] LABS: Potassium* 3.5 mmol/L (3.6-5.1); Sodium* 130 mmol/L (135-149)
[2022-12-14 07:09] LABS: Creatinine* 0.6 mg/dL (0.5-1.5); Estimated Glomerular Filt Rate 90 ml/min
[2022-12-14 07:10] LABS: Blood Urea Nitrogen* 22 mg/dL (7-30); Carbon Dioxide* 21 mmol/L (20-32)
[2022-12-14 07:11] LABS: Calcium* 8.7 mg/dL (8.4-10.6); Glucose* 83 mg/dL (60-115)
[2022-12-14 07:33] LABS: Slide Review Reflex No
[2022-12-14] MEDS: cefTRIAXone 2 GM in 0.9 % SODIUM CHLORIDE Mini-bag 100 ML IVPB (08:21)
[2022-12-14] MEDS: SODIUM CHLORIDE 1 GM TABLET PO ×3 (08:26→17:57)
[2022-12-14] MEDS: AZITHROMYCIN 250 MG TABLET PO (08:26)
[2022-12-14] MEDS: POTASSIUM BICARB 25 MEQ EFFERVESCENT TAB 50 MEQ PO (08:26)
[2022-12-14] MEDS: predniSONE 20 MG TABLET 40 MG PO (08:26)
[2022-12-14 11:11] LABS: Potassium* 4.2 mmol/L (3.6-5.1); Sodium* 131 mmol/L (135-149)
[2022-12-14 15:18] LABS: Strep pneumoniae Ag, Urine Positive (Negative)
--- NOTE | 2022-12-14 16:16 | P.IMPN_ITS ---
Progress Note: A&P Assessment and plan (1) Confusion: Problem details: - noted by on 12/09 - likely combination of acute illness and hyponatremia, also consider atypical alcohol withdrawal as patient states she drinks 1-2 glasses of wine most nights of the week (had not been drinking over the past few days secondary to illness) - continue to follow Status: Acute (2) Acute hyponatremia: Problem details: Status: Acute (3) Pneumonia of both lungs: Problem details: - Given severity of disease, will add vancomycin to regimen 12/13 - blood cultures obtained 12/13 (has received Azithromycin and Rocephin prior) - respiratory therapy following - continue supplemental oxygen as needed Status: Acute (4) Acute respiratory failure with hypoxia: Problem details: - 2/2 PNA Status: Acute (5) Hypertension: Problem details: - blood pressure on the lower side, holding home lisinopril dose Status: Acute (6) History of smoking: Problem details: Quit 2 months ago. Status: Acute Plan 1. Will switch her to oral antibiotics today. 2. Remove IV 3. Continue to monitor labs 4. This patient will definitely need repeat imaging, either CT scan of chest or chest x-ray in 6-8 weeks to make certain that there is no underlying neoplasm. 5. Reviewed with patient, her daughter, her son-in-law. Answered their questions to their satisfaction. They are agreeable. Time Spent With Patient Total time spent: 50 minutes Subjective Time Seen by Provider: 10:00 Date Seen: 12/14/22 Interval history: Hospital day 3. 82-year-old woman with multi lobar pneumonia and hyponatremia. First thing she asked me when I walk in the room today before even introduce myself is, can I go home today? Patient states she is feeling closer to her baseline. Acknowledges a sense of lingering weakness. Cough is much improved. Denies dyspnea at rest. Not requiring oxygen supplementation at this time. Patient's daughter confers with me this afternoon and informs me that her mother is still thinking odd Tessa. I tried to clarify this and the daughter suggests that the mother is acting more paranoid and is accusatory toward her and that this is unusual behavior on her part. Exam Narrative: Exam Narrative: Appears comfortable and in no acute distress. Alert, oriented to self, place, time, situation. Friendly, cooperative, articulate. Insight is decreased. Nevertheless she is able to reason that she would do well to stay in the hospital at least 1 more night. Decreased breath sounds in left with increased rales. Right side for the most part is clear to auscultation without wheezing, rhonchi, or rales. Regular heart rate with normal S1-S2. Abdomen with active bowel sounds, soft, nontender. Extremities with trace edema pretibially bilaterally. Independent transfer, station, and gait. Const: Vital Signs, click to edit/add: Vital Signs - 24 hr 12/13/22 19:19 12/13/22 22:28 12/13/22 22:32 Temperature 98.8 F 98.8 F Pulse Rate [Left P ulse Oximeter] 111 H 105 H 105 H Respiratory Rate 16 16 16 Blood Pressure [Le ft Arm] 144/88 H 143/85 H Pulse Oximetry 95 95 Oxygen Delivery Me thod Room Air Room Air Oxygen Flow Rate 12/14/22 02:40 12/14/22 07:00 12/14/22 07:34 Temperature 98 F 98.3 F Pulse Rate [Left P ulse Oximeter] 72 94 94 Respiratory Rate 18 24 24 Blood Pressure [Le ft Arm] 120/88 156/91 H Pulse Oximetry 90 90 Oxygen Delivery Me thod Room Air Room Air Oxygen Flow Rate 12/14/22 11:00 12/14/22 15:00 12/14/22 15:00 Temperature 99.2 F 98.6 F Pulse Rate [Left P ulse Oximeter] 109 H 103 H 103 H Respiratory Rate 24 20 20 Blood Pressure [Le ft Arm] 142/82 H 138/80 Pulse Oximetry 92 90 Oxygen Delivery Me thod Room Air Nasal Cannula Oxygen Flow Rate 0.5 Documenting provider has reviewed patient's vital signs: yes Labs Labs: Laboratory Results - last 24 hr 12/13/22 12/13/22 12/14/22 01:58 20:01 00:35 WBC RBC Hgb Hct MCV MCH MCHC RDW Coeff of Yuli Plt Count Neut % (Auto) Lymph % (Auto) [place] % (Auto) Eos % (Auto) Baso % (Auto) Neut # (Auto) Lymph # (Auto) [place] # (Auto) Eos # (Auto) Baso # (Auto) Sodium 125 L 125 L Potassium Chloride Carbon Dioxide BUN Creatinine Estimated GFR Glucose Calcium C-Reactive Protein Ur Strep pneumoniae Ag Positive A 12/14/22 12/14/22 12/14/22 04:13 06:05 10:55 WBC 11.54 H RBC 3.93 L Hgb 12.0 Hct 33.8 MCV 86 MCH 31 MCHC 36 RDW Coeff of Yuli 12.8 Plt Count 162 Neut % (Auto) 91.6 H Lymph % (Auto) 3.0 L [place] % (Auto) 3.5 Eos % (Auto) 0.0 Baso % (Auto) 0.0 Neut # (Auto) 10.60 H Lymph # (Auto) 0.30 L [place] # (Auto) 0.40 Eos # (Auto) 0.00 Baso # (Auto) 0.00 Sodium 127 L 130 L 131 L Potassium 3.5 L 4.2 Chloride 101 Carbon Dioxide 21 BUN 22 Creatinine 0.6 Estimated GFR 90 Glucose 83 Calcium 8.7 C-Reactive Protein 27.0 H Ur Strep pneumoniae Ag Imaging CT scan - chest: Attestation: I have reviewed the pertinent imaging results. Radiologist's impression: No pulmonary embolism. Areas of consolidation within the left upper lobe and right middle lobe with near complete involvement of the left upper lobe, compatible with multilobar pneumonia. No effusion. Incidentally noted large bilateral renal cysts, measuring 7.8 cm on the left and 6 cm on the right.
--- NOTE | 2022-12-14 16:44 | PC.NURSE ---
Pt now on 0.5 liters of oxygen. Pt was not agreeable to wearing oxygen until 2pm. When oxygen saturations checked through out time of shift Pt was chronically between 86-89% Pt instructed to deep breathe and saturations would increase to low 90's. Pt agreeable to stay through tonight after family involvement. Extensive conversations about Na levels. Pt is independent in room. Pt was saline locked this AM and IV removed at 1015am, catheter intact. VSS.?
[2022-12-14] MEDS: ENOXAPARIN 40 MG/0.4 ML INJ SUBCUT (21:12)
[2022-12-14 23:14] LABS: Urine Osmolality 488 mOsm/kg (50-800)
[2022-12-15 00:23] LABS: Hours Collected Not Provided hr; Total Volume Not Provided mL
[2022-12-15 02:30] VITALS: BP 146/84; PULSE 79; RESP 16; TEMP 36.8; O2SAT 90
--- NOTE | 2022-12-15 05:10 | PC.NURSE ---
[id number] Pt pleasant and cooperative, walked halls with daughter and showered in the evening, tolerated both activities well, denies lightheaded of dizziness. 1LPM NC O2 required to maintain sats at or slightly above 90%. checked O2 after taking a shower on RA and pt sats were 86%, she was asymptomatic. intermittently coughing up thick yellow sputum, encouraged pt to deep breath. she did mention L lower rib pain with coughing. She slept well during the night.
[2022-12-15 05:18] VITALS: O2SAT 90
[2022-12-15 06:30] LABS: HCO3 VBG 26 mmol/L (21-28); PCO2 VBG 46 mmHG (40-50); PO2 VBG 54.9 mmHG (25-47); pH VBG 7.364 (7.32-7.43)
[2022-12-15 06:47] LABS: Hematocrit 31.3 % (33.0-51.0); Mean Corpuscular HGB Conc 35 gm/dL (32-36); Mean Corpuscular Hemoglobin 31 pg (26-34); Mean Corpuscular Volume 88 fL (80-100); Platelet Count* 177 K/uL (140-440); Red Blood Count 3.56 m/uL (4.00-5.20); White Blood Count* 21.08 K/uL (4.50-11.00)
[2022-12-15 06:53] LABS: Chloride* 101 mmol/L (96-114)
[2022-12-15 06:54] LABS: Potassium* 3.9 mmol/L (3.6-5.1); Slide Review Reflex No; Sodium* 131 mmol/L (135-149)
[2022-12-15 06:56] LABS: Creatinine* 0.6 mg/dL (0.5-1.5); Estimated Glomerular Filt Rate 90 ml/min
[2022-12-15 06:57] LABS: Blood Urea Nitrogen* 27 mg/dL (7-30); Calcium* 8.4 mg/dL (8.4-10.6); Carbon Dioxide* 24 mmol/L (20-32); Glucose* 90 mg/dL (60-115); Magnesium* 2.1 mg/dL (1.5-2.6)
[2022-12-15 07:43] VITALS: RESP 20; O2SAT 91
[2022-12-15 07:46] VITALS: BP 143/79; PULSE 85; RESP 20; TEMP 37.1; O2SAT 91
[2022-12-15] MEDS: SODIUM CHLORIDE 1 GM TABLET PO ×2 (08:07→11:47)
[2022-12-15] MEDS: AZITHROMYCIN 250 MG TABLET PO (08:08)
[2022-12-15 10:33] VITALS: O2SAT 84; O2SAT 87; O2SAT 90
--- NOTE | 2022-12-15 10:37 | RESP.3PART ---
3 Part Home O2 Testing Summary RT 3 Part Home O2 Testing Summary Start: 12/15/22 10:11 Freq: ONCE Status: Active Protocol: Document 12/15/22 10:33 HEATHER (Rec: 12/15/22 10:35 HEATHER [id number]) 3 Part Home O2 Testing Summary The following is a summary of the 3 Part O2 Testing Evaluation Date/Time of Testing Date 12/15/22 Time 10:34 Insurance Policy Number [id number] Step 1 SAT on room air at rest (%) 87 Step 2 SAT on room air while exercising (%) 84 Step 3 SAT on supplemental O2 while exercising 90 (%) Liters of supplemental O2 needed while 3 exercising (L) O2 Delivery O2 delivered via Nasal Cannula Comments Comments Patient SAT on room air at rest is 87% and requires 1L NC to keep SAT at 90% at rest. Patient SAT on room air with activity is 84% and requires 3L NC to keep SAT at 90%.
--- NOTE | 2022-12-15 10:42 | W.PM.HOT ---
Acute Home Oxygen Therapy Acute Home Oxygen Therapy Diagnosis for Oxygen Therapy (1) Chronic obstructive pulmonary disease: Code(s): J44.9 - Chronic obstructive pulmonary disease, unspecified Provider Note Provider Note: Patient was admitted on 12/13/22 at 08:04 and will be discharging on 12/12/2022. Patient is desaturating with SATs of 84% on room air due to chronic obstructive pulmonary disease (ICD-10 J44.9). Alternative therapies have been attempted and have not been successful in maintaining the patient's saturation level above 88%. Supplemental O2 is required. This patient is mobile within the home and requires portability.
[2022-12-15 11:00] VITALS: BP 136/86; PULSE 84; RESP 20; TEMP 36.7; O2SAT 90
--- NOTE | 2022-12-15 13:11 | PC.NURSE ---
Pt on 1 liter of oxygen. Pt is independent in room. Pt?s cognition status has improved since 12/14/22 shift. Pt to discharge home with and daughter to help support at home. Pt will be sent with home oxygen after RT assessment.?
--- NOTE | 2022-12-15 16:16 | PM.DS1 ---
DS: Providers Provider Time Seen by Provider: 10:00 Date Seen: 12/15/22 Date of admission: 12/13/22 08:04 Primary care physician: Lana Elizondo MD Admitting Clinician: Era Gayle MD Consults: 12/13/22 Consult to Physical Therapy [CONS] Routine Comment: Reason(s) for PT Consult:: Evaluate and Treat Any Restrictions?:: No Restrictions Attending Physician on discharge: Wilmer Tirado MD Date of Discharge: 12/15/22 DS: Diagnosis Discharge Diagnosis (1) Confusion: Status: Acute Problem details: - noted by on 12/09 - likely combination of acute illness and hyponatremia, also consider atypical alcohol withdrawal as patient states she drinks 1-2 glasses of wine most nights of the week (had not been drinking over the past few days secondary to illness) - continue to follow (2) Pneumonia of both lungs: Status: Acute Problem details: - Given severity of disease, will add vancomycin to regimen 12/13 - blood cultures obtained 12/13 (has received Azithromycin and Rocephin prior) - respiratory therapy following - continue supplemental oxygen as needed (3) Acute respiratory failure with hypoxia: Status: Acute Problem details: - 2/2 PNA (4) Chronic obstructive pulmonary disease: Status: Acute (5) Chronic hypoxemic respiratory failure: Status: Acute (6) History of smoking: Status: Acute Problem details: Quit 2 months ago. (7) Acute hyponatremia: Status: Acute Problem details: DS: Summary Hospital Course Hospital Course: Melinda Jackson is a 82 year old female who presented to the emergency room yesterday for an approximate 4-5 day history of nausea and intermittent cough.? She has not been eating well 2/2 illness, but is pushing fluids. She has had exposure to URI symptoms, and yesterday her checked her oxygen saturation at home and found to be in the low 80% range. ER course and findings: ?- sodium of 120 (baseline 135 as an outpatient) ?- CRP 30 9:00 a.m., elevated D-dimer, white blood count 2.8 with PMN predominance ?- CT scan revealed a multifocal pneumonia affecting the left upper lobe and right middle lobe ?- Rocephin and azithromycin initiated in the emergency room She was admitted overnight by the E-hospitalist service. Her condition gradually improved throughout the course hospitalization. Oxygen needs decreased substantially such that on date of discharge he only warranted oxygen at 1 liter/minute via nasal cannula continuously at rest and 3 liters/minute via nasal cannula with activity to maintain oxygen saturations greater than 88%. We transitioned her to oral antibiotics the day prior to discharge which she tolerated. Informed her that she will need followup in regard to pulmonary infiltrates with repeat imaging, either chest x-ray or CT scan of the chest or both, in 6-[address] imaging might be preferable in an effort to follow-up on bilateral renal cysts noted. Time spent discussing smoking cessation with patient: 3 to 10 minutes Status at Discharge Cognitive/behavioral status at discharge: Nearly back to baseline. Functional status at discharge: independent ambulation Overall status at discharge: patient is progressing back to baseline Time Spent with Patient Time attestation: Total time spent providing and/or coordinating discharge services: Time spent: Greater than 30 minutes Exam Narrative: Exam Narrative: Appears comfortable and in no acute distress.? Alert, oriented to self, place, time, situation.? Friendly, cooperative, articulate. Insight is decreased.? Nevertheless she is able to reason that she would do well to stay in the hospital at least 1 more night. Decreased breath sounds in left with increased rales.? Right side for the most part is clear to auscultation without wheezing, rhonchi, or rales. Regular heart rate with normal S1-S2.? Abdomen with active bowel sounds, soft, nontender.? Extremities with trace edema pretibially bilaterally.? Independent transfer, station, and gait. Const: Vital Signs, click to edit/add: Vital Signs - 24 hr 12/14/22 19:00 12/14/22 22:26 12/14/22 23:00 Temperature 98.5 F 97.8 F Pulse Rate [Left P ulse Oximeter] 99 97 Respiratory Rate 18 18 18 Blood Pressure [Le ft Arm] 134/82 131/72 Pulse Oximetry 95 89 Oxygen Delivery Me thod Nasal Cannula Nasal Cannula Oxygen Flow Rate 0.5 1 12/15/22 02:30 12/15/22 05:18 12/15/22 07:43 Temperature 98.2 F Pulse Rate [Left P ulse Oximeter] 79 Respiratory Rate 16 20 Blood Pressure [Le ft Arm] 146/84 H Pulse Oximetry 90 90 91 Oxygen Delivery Me thod Nasal Cannula Nasal Cannula Nasal Cannula Oxygen Flow Rate 1 1 1 12/15/22 07:46 12/15/22 07:46 12/15/22 11:00 Temperature 98.7 F 98.1 F Pulse Rate [Left P ulse Oximeter] 85 85 84 Respiratory Rate 20 20 Blood Pressure [Le ft Arm] 143/79 H 136/86 Pulse Oximetry 91 90 Oxygen Delivery Me thod Nasal Cannula Nasal Cannula Oxygen Flow Rate 1 1 Documenting provider has reviewed patient's vital signs: yes DS: Data Data Completed and Pending Labs on day of discharge: Labs from last 24 hours 12/15/22 12/13/22 12/13/22 06:01 02:15 01:27 WBC 21.08 H RBC 3.56 L Hgb 11.0 L Hct 31.3 L MCV 88 MCH 31 MCHC 35 Plt Count 177 VBG pH 7.364 VBG pCO2 46 VBG pO2 54.9 H VBG HCO3 26 Sodium 131 L Potassium 3.9 Chloride 101 Carbon Dioxide 24 BUN 27 Creatinine 0.6 Estimated GFR 90 Glucose 90 Serum Osmolality 244 L Calcium 8.4 Magnesium 2.1 Ur Random Osmolality 488 Ur Creatinine per Vol 46 Ur Creatinine 24 Hour Not Applicable U Collection Duration Not Provided Urine Total Volume Not Provided Ur Sodium per Vol 20 Ur Sodium mmol/Day Not Applicable Ur L.pneumophila Ag Negative Preliminary micro results at discharge 12/13/22 08:14 Blood Culture - Preliminary Blood NO GROWTH AFTER 48 HOURS 12/13/22 08:10 Blood Culture - Preliminary Blood NO GROWTH AFTER 48 HOURS Imaging Chest x-ray: Attestation: I have reviewed the pertinent imaging results. Radiologist's impression: 1. Consolidation of most of the left hemithorax is present with mild ground-glass infiltrate seen in the right lower lung zone. Findings may be due to pneumonia. CT scan - chest: Attestation: I have reviewed the pertinent imaging results. Radiologist's impression: No pulmonary embolism. Areas of consolidation within the left upper lobe and right middle lobe with near complete involvement of the left upper lobe, compatible with multilobar pneumonia. No effusion. Incidentally noted large bilateral renal cysts, measuring 7.8 cm on the left and 6 cm on the right. Discharge Plan Discharge Disposition: Home, Self-Care Date of Admission: 12/13/22 08:04 Attending Provider on Discharge: Wilmer Tirado Primary Care Provider: Lana Elizondo Condition: Improved Anticipated Discharge Date/Time: 12/15/22 13:00 Discharge Medications: New azithromycin 250 mg Tablet 250 mg PO Q24H 1 Days Qty: 1 0RF Taper: Z-KIERA 250 mg Q24H for 1 Day and 0 Hour benzonatate 100 mg Capsule 100 mg PO TID PRN (Reason: cough) 14 Days Qty: 30 0RF cefuroxime axetil 500 mg Tablet 500 mg PO BIDWM 4 Days Qty: 8 0RF sodium chloride 1,000 mg Tablet,Soluble 1,000 mg PO TIDWM 30 Days Qty: 90 0RF Continued lisinopril 10 mg tablet 10 mg PO DAILY Discharge Orders: Discharge Order (Routine); Ordered 12/15/22 Ordered By: Wilmer Tirado Patient Education: Cefuroxime (By mouth), Benzonatate (By mouth), Azithromycin (By mouth), Sodium Chloride (By mouth), Hyponatremia (GEN), Using Oxygen at Home (GEN), Bacterial Pneumonia (GEN), Air Travel With Oxygen (GEN), Altered Mental Status (GEN) Additional Instructions: 1. Use Aerobika device a minimum of 4 times daily, may use hourly while awake. 2. Smoking cessation hereafter. 3. Minimize alcohol consumption, preferably avoid alcohol consumption hereafter. Activity Level: Activity as Tolerated Discharge Diet: Regular Follow Up Appointments: Lana Elizondo MD [Primary Care Provider] - 12/24/22 11:10 am (1. Follow up in 1-2 weeks with pre-visit sodium level. With Dr. Elizondo [facility]. 2. Follow-up in 6-8 weeks with pre-visit PA and Lateral Chest x-ray - follow up multi-lobar pneumonia and infiltrates. January 28, 2023 at 11:10am with Dr. Elizondo.) Forms: [employer] Info Instructions
== END 2022-12-15 12:40 | disposition home or self-care (01) | DRG 189 ==
LOC: ED 23:30 → MEDSURG 23:59
PROVIDERS: Family Medicine; Hospitalist; Internal Medicine; Admitting Provider Family Medicine; Emergency Provider Family Medicine; PCP Family Medicine; Visit Provider Family Medicine
DX: J96.21 Acute and chronic respiratory failure with hypoxia (principal); J18.9 Pneumonia, unspecified organism; J44.0 Chronic obstructive pulmonary disease with (acute) lower respiratory infection; E87.1 Hypo-osmolality and hyponatremia; G31.84 Mild cognitive impairment of uncertain or unknown etiology; F17.210 Nicotine dependence, cigarettes, uncomplicated; I10 Essential (primary) hypertension; Z85.828 Personal history of other malignant neoplasm of skin
CPT/HCPCS: 36415; 71045; 71260; 80048; 80053; 82803; 83605; 83735; 83880; 83930; 83935; 84132; 84295; 84300; 84484; 85025; 85027; 85379; 86140; 87040; 87449; 87631; 87899; 93005; 94664; 94761; 97110; 97112; 97116; 97162; 97165; 97535; 99284; 99285; A9270; G0378; J0696; J1650; J3370; J7030; J7050; J7120; J7131; J7512; Q9967

== ENCOUNTER 2023-03-21 09:04 | Outpatient (RCR) | payer MEDICARE, BC, SELFPAY ==
--- NOTE | 2023-03-21 16:46 | PT.OPEX ---
[facility] Outpatient Eval PT [facility] Outpatient Eval Start: 03/21/23 10:55 Freq: Status: Active Protocol: Document 03/21/23 13:08 ABNER (Rec: 03/21/23 16:42 [facility] [id number]) E-signed By Dora Munguia PT Physical Therapy Outpatient Evaluation Insurance Information Recert Due Date 06/18/23 Insurance Name Medicare B,Blue Cross/Blue Shield Medical Diagnosis PES PLANUS Q66.52 Treating Diagnosis L FOOT PAIN M79.672 LEFT PTTD (POSTERIOR TIBIALIS TENDON DYSFUNCTION) M76.822 Referring MD BRIDGER MUHAMMAD Subjective Subjective PATIENT REPORTS SLIPPING IN HER FLIP FLOPS AND FRACTURING HER RIGHT FOOT WHICH CREATED EXCESSIVE USE OF HER LEFT LOWER EXTREMITY. SHE STATES, I WAS HOPING YOU COULD GIVE ME SOME DIRECTION AND EXERCISES TO HELP ME STRENGTHENING THIS FOOT (L) Pain Comments 3-12/18 LEFT MEDIAL ANKLE Date of Last Physician Visit 02/25/23 Current Work Status Retired Occupation RETIRED Preferred Name [employer] Precautions Therapy Limitations/Systems Review Not Limited Objective Other/Pertinent Objective FOOT ALIGNMENT/GAIT: HAMMERTOE 2ND, 3RD, 4TH; BILATERAL ACQUIRED PES PLANUS, BILATERAL BUNION, NAVICULAR DROP ANKLE ROM PF: WFL DF:WFL INversion: LIMITED EVersion: WFL LE MMT Hip flexion: R 4/5 L 4/5 Hip Extension: R 4/5 L 4/5 Hip abduction: R 4/5 L 4/5 knee extension: R 4+/5 L 4+/5 Knee Flexion: R4+/5 L 4+/5 DF: 4/5 PF: 4-/5 INV: R 4-/5 EV: R 4-/5 JOINT MOBILITY/PALPATION: SPECIAL TESTS Talar tilt Test: (-) Anterior Drawer Test: (-) Windlass test: (-) OTHER: SLS: 9 SL squat: UNABLE TX: SEATED PF STRETCH 3 X 30 SEC AROM DF/PF, AROM IN/EV AROM CC/CCW TENNIS BALL MASSAGE Functional Test Performed & Score TINETTI: Assessment Assessment/Impression PATIENT IS AN 82 YO REFERRED TO PHYSICAL THERAPY FROM [facility] FOR L POSTERIOR TIBIAL TENDON DYSFUNCTION ( PTTD); PMHX INCLUDES BUT NOT LIMITED TO FRACTURE RIGHT FIFTH METATARSAL ZONE 1, FOOT PAIN, ACQUIRED PES PLANUS BILATERAL, HTN, COPD, CHRONIC HYPOXEMIA RESPIRATORY FAILURE, H/ O BILATERAL PNA, RECENT EMERGENT VISIT D/T CONFUSION RELATED TO ALCOHOL 12/09/22, H/O FALLS. SHE LIVES WITH HER SPOUSE WITH ONE STEP TO ENTER HOME THROUGH GARAGE. SHE DENIES ANY ISSUES WITH UNSTEADINESS BLAMING HER FALLS ON ICE, SHIFT IN FLIP FLOPS, GENERAL POOR ATTENTIVENESS. SHE DEMONSTRATES A LEFT NAVICULAR DROP WITH CALLUS AND BILATERAL PES PLANUS WEARING GOOD QUALITY SANDALS TODAY WITH SUPPORT. SHE C/O PAIN POSTERIOR TO THE MEDIAL MALLEOLUS AND MEDIAL BORDER OF TIBIA WHERE THE POSTERIOR TIBIALIS LIES. XRAYS REVEAL OSTEOPHYTES DORSALLY THROUGHOUT THE MID FOOT, ARTHROSIS TO MID FOOT, BIPARTITE MEDIAL SESAMOID, AND SUBCHONDRAL SCLEROSIS. HER PATIENT CENTERED GOAL IS TO BE ABLE TO LEARN EXERCISES TO HELP HER STRENGTH AND KEEP ME ABLE TO WALK. WE DISCUSSED WITH PICTURES THE ANATOMY OF THE MEDIAL FOOT AND ROLE OF THE POSTERIOR TIBIALIS MUSCLE AND TENDON WELL THE DIFFERENCE BETWEEN TENDINOSIS AND TENDONITIS. SHE HAS ORTHOTICS BUT IS WEARING HER SANDALS PREDOMINATELY THAT PROVIDE ADEQUATE SUPPORT FOR HER FALLEN LONGITUDINAL ARCHES. SHE IS ENCOURAGED TO WEAR HER RIGID ORTHOTICS WELL TO CONSIDER ROCKER BOTTOM SHOES TO UNLOAD THE PTT . LASTLY, SHE WAS REQUIRED TO WEAR A WALKING CAM FOR HER RIGHT FOOT FRACTURE WHICH LIKELY INCREASED THE LEFT FOOT 'S NEED AND PROVIDED THE PERFECT SCENARIO TO CREATE PTTD. SHE IS APPROPRIATE FOR SKILLED PHYSICAL THERAPY TO ADDRESS STRENGTH, SYMPTOM MGMT , AND FLEXIBILITY. PATIENT VERBALIZED UNDERSTANDING TO ALL SKILLED INSTRUCTION AND AGREEABLE TO POC AND FREQ. Primary Functional Limitations PROLONGED STDG PROLONGED AMB WALKING ON UNEVEN SURFACE PAIN Plan of Care Rehabilitation Potential Good Physical Therapy Goals IN 6-8 VISITS: 1. PATIENT WILL RETURN TO WALKING FOR COMMUNITY CENTERED ACTIVITIES AND REPORT <3/10 PAIN IN HER LEFT FOOT. 2. PATIENT WILL DEMONSTRATED 1 /2 GRADE IMPROVEMENT WITH HER ANKLE STRENGTH. 3. PATIENT WILL DEMONSTRATE INDEPENDENCE WITH HER HEP AND THE ABILITY TO PROGRESS TOLERATED. Coordination/Communication With Referral Source Treatment Plan/Direct Interventions Gait Training,Heat,Ice/Cold/ Vasopneumatic,Joint Mobilization,Manual Therapy, Neuromuscular Re-ed,Self-Care/ Home Management,Therapeutic Activities,Therapeutic Exercises,Ultrasound Frequency/Duration 1X/WK FOR 8-10 WEEKS Patient Will Be Discharged From Therapy Completion of LTG(s), Independently Progressing Discharge Plan Comments DISCHARGE TO SELF WHEN GOALS MET OR MAX POTENTIAL ACHIEVED Evaluation Billing Untimed Code Treatment Minutes 20 PT Eval No Charge No Complexity Moderate Certification Information Initial Certification Date 03/21/23 Ending Certification Date 06/18/23 Provider Signature Shows Agreement With POC & Medical Necessity Physician Signature & Date Requested Please Sign/Date Here Physician Comment/Change : Physician NPI Number #
== END 2023-05-19 09:01 | disposition home or self-care (01) ==
PROVIDERS: PCP Family Medicine; Visit Provider Physician Assistant Surgical
DX: Q66.52 Congenital pes planus, left foot (principal); M76.822 Posterior tibial tendinitis, left leg; M79.672 Pain in left foot; Z51.89 Encounter for other specified aftercare
CPT/HCPCS: 97110; 97140; 97162

== ENCOUNTER 2025-06-06 08:57 | Outpatient (CLI) | payer MEDICARE, BC, SELFPAY ==
--- NOTE | 2025-06-06 10:45 | CRLHL7_ITS ---
For Patients: As a result of the Cures Act, medical imaging exams and procedure reports are released immediately into your electronic medical record. You may view this report before your referring provider. If you have questions, please contact your health care provider. Indication: Non-healing wound over pretibial region, assess for osteotomy Technique: Two views left tibia and fibula IMPRESSION: Soft tissue wound. No cortical destruction or periostitis. No fracture. No evidence of osteomyelitis. Dictated by Yunier Avery MD @ 06/06/2025 11:18:12 AM (Electronically Signed)
== END 2025-06-06 08:58 | disposition home or self-care (01) ==
PROVIDERS: PCP Family Medicine; Visit Provider Family Medicine
DX: L97.822 Non-pressure chronic ulcer of other part of left lower leg with fat layer exposed (principal); L59.8 Other specified disorders of the skin and subcutaneous tissue related to radiation; I35.0 Nonrheumatic aortic (valve) stenosis; Z85.828 Personal history of other malignant neoplasm of skin; Z92.3 Personal history of irradiation
CPT/HCPCS: 11042; 73590; G0463

== ENCOUNTER 2025-06-13 09:04 | Outpatient (CLI) | payer MEDICARE, BC, SELFPAY | END 2025-06-13 09:05 | disposition home or self-care (01) | LOC: WOUND 09:04 | PROVIDERS: PCP Family Medicine; Visit Provider Family Medicine | DX: L97.822 Non-pressure chronic ulcer of other part of left lower leg with fat layer exposed (principal); L59.8 Other specified disorders of the skin and subcutaneous tissue related to radiation; I35.0 Nonrheumatic aortic (valve) stenosis; Z85.828 Personal history of other malignant neoplasm of skin; Z92.3 Personal history of irradiation | CPT/HCPCS: 11042 ==

== ENCOUNTER 2025-06-20 08:55 | Outpatient (CLI) | payer MEDICARE, BC, SELFPAY | END 2025-06-20 08:56 | disposition home or self-care (01) | LOC: WOUND 08:56 | PROVIDERS: PCP Family Medicine; Visit Provider Family Medicine | DX: L97.822 Non-pressure chronic ulcer of other part of left lower leg with fat layer exposed (principal); L59.8 Other specified disorders of the skin and subcutaneous tissue related to radiation; I35.0 Nonrheumatic aortic (valve) stenosis; Z85.828 Personal history of other malignant neoplasm of skin; Z92.3 Personal history of irradiation | CPT/HCPCS: G0463 ==

== ENCOUNTER 2025-06-27 08:59 | Outpatient (CLI) | payer MEDICARE, BC, SELFPAY | END 2025-06-27 09:00 | disposition home or self-care (01) | LOC: WOUND 08:59 | PROVIDERS: PCP Family Medicine; Visit Provider Nurse Practitioner Family | DX: L59.8 Other specified disorders of the skin and subcutaneous tissue related to radiation (principal); L97.822 Non-pressure chronic ulcer of other part of left lower leg with fat layer exposed; I10 Essential (primary) hypertension; I34.0 Nonrheumatic mitral (valve) insufficiency; I35.0 Nonrheumatic aortic (valve) stenosis; Y84.2 Radiological procedure and radiotherapy as the cause of abnormal reaction of the patient, or of later complication, without mention of misadventure at the time of the procedure | CPT/HCPCS: G0463 ==

== ENCOUNTER 2025-07-04 08:56 | Outpatient (CLI) | payer MEDICARE, BC, SELFPAY | END 2025-07-04 08:57 | disposition home or self-care (01) | LOC: WOUND 08:57 | PROVIDERS: PCP Family Medicine; Visit Provider Nurse Practitioner Family | DX: L59.8 Other specified disorders of the skin and subcutaneous tissue related to radiation (principal); L97.822 Non-pressure chronic ulcer of other part of left lower leg with fat layer exposed; I10 Essential (primary) hypertension; I35.0 Nonrheumatic aortic (valve) stenosis; I34.0 Nonrheumatic mitral (valve) insufficiency; Z85.828 Personal history of other malignant neoplasm of skin | CPT/HCPCS: 11042 ==

== ENCOUNTER 2025-07-13 09:15 | Outpatient (CLI) | payer MEDICARE, BC, SELFPAY | END 2025-07-13 09:16 | disposition home or self-care (01) | PROVIDERS: PCP Family Medicine; Visit Provider Nurse Practitioner Family | DX: L59.8 Other specified disorders of the skin and subcutaneous tissue related to radiation (principal); L97.822 Non-pressure chronic ulcer of other part of left lower leg with fat layer exposed; I10 Essential (primary) hypertension; I35.0 Nonrheumatic aortic (valve) stenosis; I34.0 Nonrheumatic mitral (valve) insufficiency; Y84.2 Radiological procedure and radiotherapy as the cause of abnormal reaction of the patient, or of later complication, without mention of misadventure at the time of the procedure; Z85.828 Personal history of other malignant neoplasm of skin | CPT/HCPCS: 11042 ==